=== PATIENT | male | born 1955 | race Caucasian/White ===

== ENCOUNTER → 2020-08-08 09:22 | Outpatient (CLI) | payer MEDICARE, OTHER, SELFPAY ==
[2020-08-08 10:15] LABS: Alanine Aminotransferase 26 IU/L (<50); Albumin Globulin Ratio 1.4 (1.0-2.8); Alkaline Phosphatase 100 U/L (38-126); Aspartate Aminotransferase 27 IU/L (17-59); Bilirubin Total 0.9 mg/dL (0.2-1.3); Blood Urea Nitrogen 13 mg/dL (9-20); Calcium 9.3 mg/dL (8.4-10.2); Carbon Dioxide 27 mmol/L (22-32); Chloride 107 mmol/L (98-107); Cholesterol 151 mg/dL (140-199); Estimated Glomerular Filt Rate > 60.0 mL/min (>60); Globulin 2.9 g/dL (1.7-4.1); Glucose 80 mg/dL (80-110); HDL Cholesterol 26 mg/dL (40-60); HEMOLYSIS 16 (0-50); Potassium 4.4 mmol/L (3.4-5.1); Sodium 140 mmol/L (137-145); Total Protein 6.9 g/dL (6.3-8.2); Triglycerides 434 mg/dL (35-150)
[2020-08-08 10:42] LABS: Prostate Specific Antigen Scrn 0.953 ng/mL (0.1-4.0)
[2020-08-08 16:29] LABS: Vitamin D 25 Hydroxy (D3) 21.8 ng/mL (30.0-100.0)
== END ==
PROVIDERS: Family Provider Internal Medicine; PCP Student in an Organized Health Care Education/Training Program; Referring Provider Student in an Organized Health Care Education/Training Program; Visit Provider Student in an Organized Health Care Education/Training Program
DX: Z12.5 Encounter for screening for malignant neoplasm of prostate (principal); E78.5 Hyperlipidemia, unspecified; I10 Essential (primary) hypertension; Z79.899 Other long term (current) drug therapy; E55.9 Vitamin D deficiency, unspecified
CPT/HCPCS: 36415; 80053; 80061; 82306; G0103

== ENCOUNTER → 2021-02-20 07:39 | Outpatient (CLI) | payer MEDICARE, OTHER, SELFPAY ==
[2021-02-20 08:25] LABS: Triglycerides 179 mg/dL (35-150)
[2021-02-20 08:41] LABS: Vitamin D 25 Hydroxy (D3) 47.6 ng/mL (30.0-100.0)
== END ==
PROVIDERS: Family Provider Internal Medicine; PCP Student in an Organized Health Care Education/Training Program; Referring Provider Student in an Organized Health Care Education/Training Program; Visit Provider Student in an Organized Health Care Education/Training Program
DX: E55.9 Vitamin D deficiency, unspecified (principal); E78.5 Hyperlipidemia, unspecified
CPT/HCPCS: 36415; 82306; 84478

== ENCOUNTER → 2021-02-20 08:36 | Outpatient (CLI) | payer MEDICARE, OTHER, SELFPAY ==
--- NOTE | 2021-02-20 08:38 | DI.RAD.S_ITS ---
PROCEDURE: XR ANKLE RT MIN 3V INDICATIONS: right ankle pain TECHNIQUE: 3 views of the ankle were acquired. COMPARISON: None. FINDINGS: Bones: No fractures or dislocations. Ankle mortise is normally aligned. No suspicious bony lesions. Mild anterior tibial talar joint space narrowing. Prominent plantar and posterior calcaneal enthesophytes. Soft tissues: No tibiotalar joint effusion. Achilles tendon appears normal. IMPRESSION: 1. Mild tibiotalar joint degeneration. 2. Prominent calcaneal enthesopathy. Dictated by: Herman Caldera [facility] Interpreted: Prem Mcneill MD on 02/20/2021 at 10:08 Approved by: Prem Mcneill M.D. on 02/20/2021 at 10:24
== END ==
PROVIDERS: Family Provider Internal Medicine; PCP Student in an Organized Health Care Education/Training Program; Referring Provider Registered Nurse; Visit Provider Registered Nurse
DX: M25.571 Pain in right ankle and joints of right foot (principal); M19.071 Primary osteoarthritis, right ankle and foot; M77.31 Calcaneal spur, right foot
CPT/HCPCS: 73610

== ENCOUNTER 2022-01-11 06:49 | Emergency (ER) | payer MEDICARE, OTHER, SELFPAY ==
[2022-01-11] VITALS (9 sets, daily range): BP systolic 121–146; BP diastolic 64–85; PULSE 47–56; RESP 10–17; TEMP 36.6; O2SAT 97–98; BMI 28.0
--- NOTE | 2022-01-11 07:26 | DI.RAD.S_ITS ---
PROCEDURE: XR CHEST 1V INDICATIONS: chest pain TECHNIQUE: One view of the chest was acquired. COMPARISON: None. FINDINGS: Surgical changes and devices: None. Lungs and pleura: Lungs are clear. No pleural effusions or pneumothorax. Mediastinum: Mediastinal contours appear normal. Heart size is enlarged. Bones and chest wall: No suspicious bony lesions. Overlying soft tissues appear unremarkable. IMPRESSION: No acute pulmonary process. Dictated by: Trinidad Ahn M.D. on 01/11/2022 at 8:14 Approved by: Trinidad Ahn M.D. on 01/11/2022 at 8:16
[2022-01-11] MEDS: ACETAMINOPHEN 325 MG TABLET 975 MG PO (07:45)
[2022-01-11] MEDS: ASPIRIN 81 MG CHEW TAB 324 MG PO (07:46)
--- NOTE | 2022-01-11 08:00 | ED.CHESTPAIN ---
HPI - Chest Pain General Chief Complaint: Chest Pain Stated Complaint: Can't put pressure on left leg- no injury Time Seen by Provider: 01/11/22 07:22 Source: patient Mode of arrival: Wheelchair Limitations: no limitations History of Present Illness HPI narrative: Patient is a 66-year-old male with history of hypertension hyperlipidemia presenting with variety of complaints. He states that for the last 3 days he has had some left leg pain. He said he was walking the dog when he felt something pop. He said it was fine and he was able to finish the walk however since then he has had increasing pain. He says it radiates from his hip and goes down his Anterior thigh and into his calf. he denies any back pain or buttock pain. He says it is quite painful he is unable to bear weight. He denies any fall. He said he tried to help somebody move firewood yesterday but was unable to do so. He also has had this left-sided chest discomfort for about the same 3 days. 8 his in 1 particular spot it hurts to touch hurts to move and hurts to breathe. He has been taking ibuprofen without any relief. He took some this morning and now feels a bit nauseous as he took it on an empty stomach. He has not felt nauseous before. He denies any shortness of breath. His left-sided chest pain does not radiate. Related Data Home Medications Medication Instructions Recorded Confirmed loperamide 2 mg tablet 2 mg PO QID PRN 09/05/20 05/27/21 Previous Rx's Medication Instructions Recorded lisinopril 10 mg tablet 10 mg PO DAILY #90 tab 11/22/20 omeprazole 20 mg capsule,delayed 20 mg PO DAILY #90 cap 11/22/20 release atorvastatin 10 mg tablet 10 mg PO DAILY #90 tab 12/23/20 gabapentin 300 mg capsule 300 mg PO BEDTIME #30 cap 01/11/22 hydrocodone 5 mg-acetaminophen 325 1 tab PO Q6H PRN #10 tab 01/11/22 mg tablet Allergies Allergy/AdvReac Type Severity Reaction Status Date / Time Penicillins [PENICILLINS] Allergy Unknown Unknown Verified 05/27/21 12:58 erythromycin base Allergy Verified 05/27/21 12:58 Review of Systems Review of Systems Narrative: GENERAL: Denies chills, fatigue, malaise, fever, sweats, travel HEENT: Denies sinus pain, ear pain, sore throat, difficulty swallowing, neck pain RESPIRATORY: Denies dyspnea, cough, wheezing, hemoptysis, sputum. CARDIOVASCULAR: See HPI GASTROINTESTINAL: Denies nausea, vomiting, abdominal pain, diarrhea, constipation, melena. : Denies dysuria, frequency, incontinence, hematuria, urinary retention, flank pain. MUSCULOSKELETAL: See HPI SKIN: No rash, no erythema, no pruritus NEUROLOGIC: Denies weakness, dizziness, headache, numbness, change in speech, confusion PSYCHIATRIC: No concerning psychosocial issues. 12 point review of systems is negative except for those stated above and HPI Patient History Medical History Chicken pox Chronic back pain Chronic knee pain Closed head injury Fractures Hearing loss HTN (hypertension) Hyperlipidemia Shoulder pain Tinnitus Surgical History Anesthesia History of mandibular surgery (~1974) Hx of cholecystectomy Family History Father History of heart disease Brother Cancer Social History Smoking Status: Never smoker Smoking Status: Never smoker alcohol intake frequency: 0-2 drinks per day Substance Use Type: does not use Exam Initial Vital Signs Initial Vital Signs: Vital Signs Temperature 97.8 F 01/11/22 07:19 Pulse Rate 56 L 01/11/22 07:19 Respiratory Rate 15 01/11/22 07:19 Blood Pressure 146/85 H 01/11/22 07:19 Pulse Oximetry 98 01/11/22 07:19 GENERAL: Alert 66-year-old male no acute distress HEENT: Head atraumatic,EOMI, pupils reactive, face symmetric, moist mucous membranes CARDIOVASCULAR: Regular rate and rhythm without murmurs, rubs or gallops. The pain is reproducible in his left upper chest. With tender to touch worse with deep breaths and movement RESPIRATORY: Breath sounds equal bilaterally, no wheezes rales or rhonchi. ABDOMEN: Soft, nontender. Normoactive bowel sounds all 4 quadrants. No guarding or rebound. BACK: No vertebral tenderness no step-off EXTREMITIES: Normal range of motion, no clubbing or edema. Neurovascularly intact Left lower extremity no significant swelling or erythema no gross bony deformities slight pain with hip internal and external rotation along with flexion NEUROLOGICAL: Alert and oriented x4.Normal gait and speech. Able to hold both lower extremities off the gurney. Left leg does hurt to move. Definitely hurts with heel to jovel his right side is unremarkable. SKIN: Warm, dry, no laceration, no petechiae, no rashes or lesions. Scores NIH Stroke Scale Level of Conciousness: Alert, keenly responsive Ask month/age: Answers both questions correctly. Open/close eyes, close hand: Performs both tasks correctly Best gaze horizontal: Normal Visual montaño: No visual loss Facial palsy: Normal symetrical movement Left arm drift: No drift for full 10 sec Right arm drift: No drift for full 10 sec Left leg drift: No drift for full 5 sec Right leg drift: No drift for full 5 sec Limb ataxia: Absent Sensory on face/arms/legs: Normal, no sensory loss Best language: No aphasia, normal Dysarthria: Normal Extinction or inattention: No abnormality Total NIH Stroke scale score: 0 Course Orders Ordered: Discontinued Medications Acetaminophen (Acetaminophen 325 Mg Tablet) 975 mg PO NOW ONE Stop: 01/11/22 07:36 Last Admin: 01/11/22 07:45 Dose: 975 mg Documented by: PROMISE Aspirin (Aspirin 81 Mg Chew Tab) 324 mg PO NOW ONE Stop: 01/11/22 07:26 Last Admin: 01/11/22 07:46 Dose: 324 mg Documented by: PROMISE Vital Signs Vital signs: Vital Signs - 8 hr 01/11/22 07:19 Temperature 97.8 F Pulse Rate 56 L Respiratory Rate 15 Blood Pressure 146/85 H Pulse Oximetry 98 MDM - Chest Pain Lab Data Result diagrams: 01/11/22 07:50 01/11/22 07:50 Labs: Lab Results 01/11/22 01/11/22 01/11/22 Range/Units 07:50 07:50 07:50 WBC 7.2 (4.5-11.0) X10^3/uL RBC 4.80 (4.5-5.9) X10^6/uL Hgb 15.0 (13.5-17.5) g/dL Hct 42.9 (41-53) % MCV 89.3 (80-100) fL MCH 31.2 (26-34) PG MCHC 35.0 (30-36) % RDW 13.2 (11.6-14.8) % Plt Count 135 L (150-400) X10^3/uL Neut % (Auto) 51.3 (50-75) % Lymph % (Auto) 34.8 (25-40) % Snyder % (Auto) 10.8 (3-14) % Eos % (Auto) 2.6 (2-4) % Baso % (Auto) 0.5 (0-2) % Neut # (Auto) 3700 (3470-4003) /uL Lymph # (Auto) 2500 (6104-4316) /uL Snyder # (Auto) 800 (0-900) /uL Eos # (Auto) 200 (0-450) /uL Baso # (Auto) 0 (0-100) /uL PT 11.9 (10.1-12.7) SECONDS INR 1.1 (0.9-1.3) APTT 30 (26.4-36.2) SECONDS D-Dimer 261 H (<230) ng/mL Sodium 141 (137-145) mmol/L Potassium 3.9 (3.4-5.1) mmol/L Chloride 109 H (98-107) mmol/L Carbon Dioxide 23 (22-32) mmol/L BUN 25 H (9-20) mg/dL Creatinine 1.26 H (0.66-1.25) mg/dL Estimated GFR 57.3 L (>60) mL/min BUN/Creatinine Ratio 19.8 (6-22) Glucose 107 (80-110) mg/dL Calcium 9.1 (8.4-10.2) mg/dL Total Bilirubin 0.9 (0.2-1.3) mg/dL AST 28 (17-59) IU/L ALT 23 (<50) IU/L Alkaline Phosphatase 84 (38-126) U/L Total Creatine Kinase 165 (55-170) U/L CK-MB (CK-2) 1.17 (<2.37) ng/mL CK-MB (CK-2) Rel Index 0.7 L (1.5-5.0) % Troponin I < 0.012 (0.01-0.034) ng/mL Total Protein 7.2 (6.3-8.2) g/dL Albumin 4.1 (3.5-5.0) g/dL Globulin 3.1 (1.7-4.1) g/dL Albumin/Globulin Ratio 1.3 (1.0-2.8) Lipase 87 (23-300) U/L Imaging Data Chest x-ray: Radiologist's Impression: PROCEDURE:? XR CHEST 1V ? INDICATIONS:? chest pain ? TECHNIQUE:? One view of the chest was acquired.? ? COMPARISON:? None. ? FINDINGS:? ? Surgical changes and devices:? None.? ? Lungs and pleura:? Lungs are clear.? No pleural effusions or pneumothorax.? ? Mediastinum:? Mediastinal contours appear normal.? Heart size is enlarged. ? Bones and chest wall:? No suspicious bony lesions.? Overlying soft tissues appear unremarkable.? ? IMPRESSION:? No acute pulmonary process. ? ? Dictated by: Trinidad Ahn M.D. on 01/11/2022 at 8:14 ?? ECG Data Interpretation: Normal sinus rhythm rate 54 DC interval 200 QRS 80 QTC 370 With T-wave inversion noted in lead [address] depression v4-v5 Normal sinus rhythm rate 52 DC interval 188 QRS [address] changes no T-wave inversions improved from previous MDM Narrative Medical decision making narrative: The patient had an event where he felt his leg a pop. Since then he has had some numbness and tingling. This seems to be musculoskeletal. He denies any back pain. He has no signs of stroke. He does have reproducible chest discomfort is which is pinpoint it has not moved or changed over the last 3 days. He has a negative cardiac workup. He does have some mild risk factors. I discussed with him that he probably does need further workup with his PCP. He is given Tylenol here he is offered more for pain but wants to be able to drive home. Discharge Plan Departure Patient Disposition: Home Clinical Impression: Left sciatic nerve pain, Atypical chest pain Instructions: DI for Sciatica, DI for Atypical Chest Pain Activity Restrictions/Additional Instructions: *You have been diagnosed with atypical chest pain and nerve pain *What to do: At this time he may need further heart workup such as a stress test but this time it seems to be musculoskeletal. Her leg seems to be from nerve his pain *Continue to take medications as directed [place] 1 tablet every 6 hours if needed for severe pain Gabapentin 300 mg at night for sleeping nerve pain (please talk to your doctor if this needs to be titrated up) *Follow up with your primary care provider in 2-3 days or call [phone] *Return to ER if you should have leg weakness loss of urine or stool, intense pain, chest pain or any new, worsening or concerning symptoms CONTROLLED SUBSTANCE DISCHARGE (Narcotoic/benzodiazepine/Flexeril/Phenergan) 1. You have been prescribed narcotic medications, it does have acetaminophen/Tylenol/paracetamol in it, DO NOT TAKE MORE THAN 4,00mg in 24 hours of Tylenol. TRAMADOL DOES NOT CONTAIN TYLENOL 2. Please understand that we cannot provide further refills of narcotics, benzodiazepines or controlled substances through the ED and her pain management will need to be through your provider. 3. While on these medications you cannot drive or operate heavy machinery. 4. You cannot sign legal documents or perform any duties such as this. 5. As long as you're taking opiate pain medications he should also be taking a stool softener such as Colace, Dulcolax, MiraLAX or prune juice, to help avoid constipation. Prescriptions: New gabapentin 300 mg capsule 300 mg PO BEDTIME Qty: 30 0RF hydrocodone-acetaminophen 5-325 mg tablet 1 tab PO Q6H PRN (Reason: pain) Qty: 10 0RF No Action lisinopril 10 mg tablet 10 mg PO DAILY Qty: 90 3RF omeprazole 20 mg capsule,delayed release(DR/EC) 20 mg PO DAILY Qty: 90 3RF atorvastatin 10 mg tablet 10 mg PO DAILY Qty: 90 2RF loperamide 2 mg tablet 2 mg PO QID PRN0RF Referrals: Israel Wasserman MD [Primary Care Provider] - Stand Alone Forms: Work Release Note
[2022-01-11 08:08] LABS: Add Manual Diff / Slide Review NO; Basophils Absolute Auto 0 /uL (0-100); Basophils Percent Auto 0.5 % (0-2); Eosinophils Absolute Auto 200 /uL (0-450); Eosinophils Percent Auto 2.6 % (2-4); Hematocrit 42.9 % (41-53); Lymphocytes Absolute Auto 2500 /uL (1100-4500); Lymphocytes Percent Auto 34.8 % (25-40); Mean Corpuscular Hemoglobin 31.2 PG (26-34); Mean Corpuscular Volume 89.3 fL (80-100); Monocytes Absolute Auto 800 /uL (0-900); Monocytes Percent Auto 10.8 % (3-14); Neutrophils Absolute Auto 3700 /uL (1500-7000); Neutrophils Percent Auto 51.3 % (50-75); Platelet Count 135 X10^3/uL (150-400); Red Cell Distribution Width 13.2 % (11.6-14.8); White Blood Cell Count 7.2 X10^3/uL (4.5-11.0)
[2022-01-11 08:16] LABS: INR 1.1 (0.9-1.3); Prothrombin Time 11.9 SECONDS (10.1-12.7)
[2022-01-11 08:19] LABS: D Dimer 261 ng/mL (<230); PTT Partial Thromboplastin Tim 30 SECONDS (26.4-36.2)
[2022-01-11 08:21] LABS: Alanine Aminotransferase 23 IU/L (<50); Albumin 4.1 g/dL (3.5-5.0); Albumin Globulin Ratio 1.3 (1.0-2.8); Alkaline Phosphatase 84 U/L (38-126); Aspartate Aminotransferase 28 IU/L (17-59); BUN Creatinine Ratio 19.8 (6-22); Bilirubin Total 0.9 mg/dL (0.2-1.3); Blood Urea Nitrogen 25 mg/dL (9-20); Calcium 9.1 mg/dL (8.4-10.2); Carbon Dioxide 23 mmol/L (22-32); Chloride 109 mmol/L (98-107); Creatine Kinase 165 U/L (55-170); Estimated Glomerular Filt Rate 57.3 mL/min (>60); Globulin 3.1 g/dL (1.7-4.1); Glucose 107 mg/dL (80-110); HEMOLYSIS < 15 (0-50); Lipase 87 U/L (23-300); Potassium 3.9 mmol/L (3.4-5.1); Sodium 141 mmol/L (137-145); Total Protein 7.2 g/dL (6.3-8.2)
[2022-01-11 08:32] LABS: Troponin I < 0.012 ng/mL (0.01-0.034)
[2022-01-11 08:36] LABS: CKMB % Relative Index 0.7 % (1.5-5.0); Creatine Kinase MB 1.17 ng/mL (<2.37)
== END 2022-01-11 09:17 | disposition home or self-care (01) ==
PROVIDERS: Emergency Provider Emergency Medicine; Family Provider Internal Medicine; PCP Student in an Organized Health Care Education/Training Program
DX: M54.32 Sciatica, left side (principal); R07.89 Other chest pain
CPT/HCPCS: 36415; 71045; 80053; 82550; 82553; 83690; 84484; 85025; 85379; 85610; 85730; 93005; 93010; 93041; 99284

== ENCOUNTER → 2022-01-13 06:24 | Outpatient (CLI) | payer MEDICARE, OTHER, SELFPAY ==
--- NOTE | 2022-01-13 06:28 | DI.MRI.S_ITS ---
PROCEDURE: MR KNEE LT WO CON INDICATIONS: Knee pain TECHNIQUE: Noncontrast sagittal PD fast spin echo and T2 fast spin echo with fat saturation, sagittal 3-D FLASH with fat saturation; coronal T1 spin echo and PD fast spin echo with fat saturation, and axial PD fast spin echo with fat saturation through the knee. COMPARISON: None. FINDINGS: Image quality: Excellent. Menisci: The lateral meniscus appears intact. Defect in the medial meniscus, measuring 6.5 mm, also exhibiting extrusion. Cruciate ligaments: The anterior and posterior cruciate ligaments appear intact. Medial structures: Grade 1/2 MCL injury. Visualized portions of the pes anserinus tendons appear normal. No abnormal bursal fluid. Lateral structures: The lateral collateral ligament, long and short heads of the biceps femoris tendon appear intact. The popliteus tendon appears normal. Iliotibial band appears normal. Anterior structures: The quadriceps and patellar tendons appear intact. Patellar alignment is normal. No femoral trochlear dysplasia or ventral trochlear prominence. No edema in the infrapatellar fat pad. Bones and cartilage: No evidence of fracture. A small focus of subchondral in the medial femoral condyle. Signal heterogeneity and thinning as well as contour irregularity of the medial femoral condyle hyaline cartilage. The lateral and patellofemoral compartments are maintained. Joint space: Small to moderate knee joint fluid. T2 hyperintense lesion in the popliteal fossa, measuring 3.4 x 0.7 cm, compatible with a Pendleton cyst. IMPRESSION: 1. Grade 1/2 MCL injury with medial meniscal tear. 2. Small to moderate joint effusion. 3. Degenerative change of the medial compartment hyaline cartilage. 4. Small Pendleton's cyst. Dictated by: Luke Sanderson M.D. on 01/13/2022 at 10:31 Approved by: Luke Sanderson M.D. on 01/13/2022 at 10:40
== END ==
PROVIDERS: Family Provider Internal Medicine; PCP Student in an Organized Health Care Education/Training Program; Referring Provider Student in an Organized Health Care Education/Training Program; Visit Provider Student in an Organized Health Care Education/Training Program
DX: M25.562 Pain in left knee (principal); S83.242A Other tear of medial meniscus, current injury, left knee, initial encounter; M25.462 Effusion, left knee; M71.22 Synovial cyst of popliteal space [Baker], left knee
CPT/HCPCS: 73721

== ENCOUNTER → 2022-08-09 08:01 | Outpatient (CLI) | payer MEDICARE, OTHER, SELFPAY ==
[2022-08-09 09:35] LABS: Add Manual Diff / Slide Review NO; Basophils Absolute Auto 0 /uL (0-100); Basophils Percent Auto 0.4 % (0-2); Eosinophils Absolute Auto 300 /uL (0-450); Eosinophils Percent Auto 4.3 % (2-4); Hematocrit 40.5 % (41-53); Hemoglobin 14.4 g/dL (13.5-17.5); Lymphocytes Absolute Auto 2200 /uL (1100-4500); Lymphocytes Percent Auto 34.9 % (25-40); Mean Corpuscular HGB Conc 35.5 % (30-36); Mean Corpuscular Hemoglobin 31.2 PG (26-34); Mean Corpuscular Volume 88.1 fL (80-100); Monocytes Absolute Auto 900 /uL (0-900); Monocytes Percent Auto 13.9 % (3-14); Neutrophils Absolute Auto 2900 /uL (1500-7000); Neutrophils Percent Auto 46.5 % (50-75); Platelet Count 137 X10^3/uL (150-400); Red Cell Distribution Width 13.6 % (11.6-14.8); White Blood Cell Count 6.2 X10^3/uL (4.5-11.0)
[2022-08-09 10:19] LABS: Hemoglobin A1C% w Est Avg Glu 5.9 % (4.0-6.0)
[2022-08-09 11:10] LABS: BUN Creatinine Ratio 14.5 (6-22); Blood Urea Nitrogen 18 mg/dL (9-20); Calcium 8.7 mg/dL (8.4-10.2); Carbon Dioxide 28 mmol/L (22-32); Chloride 100 mmol/L (98-107); Estimated Glomerular Filt Rate > 60 mL/min (>60); Glucose 98 mg/dL (80-110); HEMOLYSIS < 15 (0-50); Potassium 4.2 mmol/L (3.4-5.1); Sodium 138 mmol/L (137-145)
[2022-08-09 12:15] LABS: Appearance Urine UA CLEAR; Bilirubin Urine UA NEGATIVE (NEGATIVE); Color Urine UA YELLOW; Glucose Urine UA NEGATIVE (Negative); Ketones Urine UA NEGATIVE (NEGATIVE); Leukocyte Esterase Urine UA NEGATIVE (NEGATIVE); Nitrite Urine UA NEGATIVE (Negative); Occult Blood Urine UA NEGATIVE (Negative); Protein Urine UA TRACE (Negative); Urobilinogen Urine UA 0.2 E.U./dL (0.2); pH Urine UA 5.5 (4.5-8.0)
[2022-08-09 12:32] LABS: Bacteria Urine Few (2-10); Culture Indicated Urine Cult Not Indicated; Mucus Urine 1+ (Negative); RBC Urine None Seen (0-5/HPF); Squamous Epithelial Cell Urine 0-1 /HPF (0-5/HPF); WBC Urine 0-1/HPF (0-5/HPF)
== END ==
PROVIDERS: Family Provider Internal Medicine; PCP Student in an Organized Health Care Education/Training Program; Referring Provider Orthopaedic Surgery; Visit Provider Orthopaedic Surgery
DX: Z01.812 Encounter for preprocedural laboratory examination (principal); R73.9 Hyperglycemia, unspecified; N39.0 Urinary tract infection, site not specified; Z01.818 Encounter for other preprocedural examination
CPT/HCPCS: 36415; 80048; 81001; 83036; 85025; 93005; 93010

== ENCOUNTER → 2022-08-25 08:29 | Outpatient (CLI) | payer MEDICARE, OTHER, SELFPAY | PROVIDERS: Family Provider Internal Medicine; PCP Student in an Organized Health Care Education/Training Program; Referring Provider Student in an Organized Health Care Education/Training Program; Visit Provider Student in an Organized Health Care Education/Training Program | DX: M54.9 Dorsalgia, unspecified (principal); M54.50 Low back pain, unspecified; G89.29 Other chronic pain; Z53.20 Procedure and treatment not carried out because of patient's decision for unspecified reasons ==

== ENCOUNTER → 2022-09-09 07:54 | Outpatient (CLI) | payer MEDICARE, OTHER, SELFPAY ==
[2022-09-09 11:28] LABS: Prostate Specific Antigen Scrn 1.12 ng/mL (0.1-4.0)
== END ==
PROVIDERS: Family Provider Internal Medicine; PCP Student in an Organized Health Care Education/Training Program; Referring Provider Student in an Organized Health Care Education/Training Program; Visit Provider Student in an Organized Health Care Education/Training Program
DX: Z12.5 Encounter for screening for malignant neoplasm of prostate (principal)
CPT/HCPCS: 36415; G0103

== ENCOUNTER → 2022-10-10 13:01 | Outpatient (CLI) | payer MEDICARE, OTHER, SELFPAY | PROVIDERS: Family Provider Internal Medicine; PCP Student in an Organized Health Care Education/Training Program; Visit Provider Student in an Organized Health Care Education/Training Program | DX: K12.0 Recurrent oral aphthae (principal) | CPT/HCPCS: 87252 ==

== ENCOUNTER → 2023-04-26 07:59 | Outpatient (CLI) | payer MEDICARE, OTHER, SELFPAY ==
[2023-04-26 08:54] LABS: Appearance Urine UA CLEAR; Bilirubin Urine UA NEGATIVE (NEGATIVE); Color Urine UA YELLOW; Glucose Urine UA NEGATIVE (Negative); Ketones Urine UA NEGATIVE (NEGATIVE); Leukocyte Esterase Urine UA NEGATIVE (NEGATIVE); Nitrite Urine UA NEGATIVE (Negative); Occult Blood Urine UA NEGATIVE (Negative); Protein Urine UA TRACE (Negative); Specific Gravity Urine UA >=1.030 (1.000-1.035); pH Urine UA 5.5 (4.5-8.0)
[2023-04-26 09:12] LABS: Bacteria Urine Few (2-10); RBC Urine 0-1/HPF (0-5/HPF); WBC Urine 0-1/HPF (0-5/HPF)
[2023-04-26 09:13] LABS: Culture Indicated Urine Cult Not Indicated; Squamous Epithelial Cell Urine None Seen (0-5/HPF)
[2023-04-26 10:09] LABS: Alanine Aminotransferase 25 IU/L (<50); Albumin 4.4 g/dL (3.5-5.0); Albumin Globulin Ratio 1.7 (1.0-2.8); Alkaline Phosphatase 102 U/L (38-126); Aspartate Aminotransferase 26 IU/L (17-59); BUN Creatinine Ratio 19.7 (6-22); Bilirubin Total 1.1 mg/dL (0.2-1.3); Blood Urea Nitrogen 25 mg/dL (9-20); Calcium 9.4 mg/dL (8.4-10.2); Carbon Dioxide 29 mmol/L (22-32); Chloride 102 mmol/L (98-107); Cholesterol 110 mg/dL (140-199); Estimated Glomerular Filt Rate > 60 mL/min (>60); Globulin 2.6 g/dL (1.7-4.1); Glucose 105 mg/dL (80-110); HDL Cholesterol 33 mg/dL (40-60); LDL Cholesterol Calculated 43 mg/dL (<100); Potassium 4.4 mmol/L (3.4-5.1); Sodium 140 mmol/L (137-145); Triglycerides 168 mg/dL (35-150)
[2023-04-26 10:10] LABS: HEMOLYSIS < 15 (0-50)
[2023-04-26 10:14] LABS: High Sensitivity CRP - Cardiac < 0.3 mg/L (1.0-3.0)
[2023-04-26 10:20] LABS: Add Manual Diff / Slide Review NO; Basophils Absolute Auto 0 /uL (0-100); Basophils Percent Auto 0.5 % (0-2); Eosinophils Absolute Auto 200 /uL (0-450); Eosinophils Percent Auto 2.1 % (2-4); Hematocrit 44.2 % (41-53); Hemoglobin 15.6 g/dL (13.5-17.5); Lymphocytes Absolute Auto 2500 /uL (1100-4500); Lymphocytes Percent Auto 32.7 % (25-40); Mean Corpuscular HGB Conc 35.3 % (30-36); Mean Corpuscular Hemoglobin 31.6 PG (26-34); Mean Corpuscular Volume 89.5 fL (80-100); Monocytes Absolute Auto 600 /uL (0-900); Monocytes Percent Auto 7.2 % (3-14); Neutrophils Absolute Auto 4400 /uL (1500-7000); Neutrophils Percent Auto 57.5 % (50-75); Platelet Count 160 X10^3/uL (150-400); Red Blood Cell Count 4.94 X10^6/uL (4.5-5.9); Red Cell Distribution Width 13.4 % (11.6-14.8); White Blood Cell Count 7.7 X10^3/uL (4.5-11.0)
[2023-04-26 10:39] LABS: TSH w/ Reflex to FT4 1.96 uIU/mL (0.47-4.68)
[2023-04-26 10:40] LABS: Prostate Specific Antigen Scrn 1.26 ng/mL (0.1-4.0)
== END ==
PROVIDERS: Family Provider Internal Medicine; PCP Pediatrics; Referring Provider Pediatrics; Visit Provider Pediatrics
DX: Z00.00 Encounter for general adult medical examination without abnormal findings; E78.5 Hyperlipidemia, unspecified; Z12.5 Encounter for screening for malignant neoplasm of prostate; E55.9 Vitamin D deficiency, unspecified; G89.29 Other chronic pain; I10 Essential (primary) hypertension; M54.9 Dorsalgia, unspecified
CPT/HCPCS: 80053; 80061; 81001; 83036; 84443; 85025; 86140; G0103

== ENCOUNTER → 2023-07-16 07:32 | Outpatient (CLI) | payer MEDICARE, OTHER, SELFPAY ==
--- NOTE | 2023-07-16 07:34 | DI.RAD.S_ITS ---
PROCEDURE: XR CHEST 2V INDICATIONS: Cough TECHNIQUE: 2 views of the chest were acquired. COMPARISON: [facility], CT, KIDNEY/ URETER/BLADDER, 06/08/2015, 17:50. [facility], CR, ABDOMEN ACUTE SERIES, 06/08/2015, 15:56. [facility], CR, XR CHEST 1V, 01/11/2022, 7:27. FINDINGS: Surgical changes and devices: Cholecystectomy clips are seen. Lungs and pleura: Lungs are clear. No pleural effusions or pneumothorax. Mediastinum: Mediastinal contours are normal. Heart size is normal. Bones and chest wall: No suspicious bony abnormalities. Age-appropriate bony degenerative changes are seen. Soft tissues appear unremarkable. IMPRESSION: No focal infiltrates are seen. Dictated by: Neto Vidales M.D. on 07/16/2023 at 9:21 Approved by: Neto Vidales M.D. on 07/16/2023 at 9:23
== END ==
PROVIDERS: Family Provider Internal Medicine; PCP Pediatrics; Referring Provider Nurse Practitioner Family; Visit Provider Nurse Practitioner Family
DX: R05.9 Cough, unspecified (principal)
CPT/HCPCS: 71046

== ENCOUNTER → 2023-07-23 07:51 | Outpatient (CLI) | payer MEDICARE, OTHER, SELFPAY ==
[2023-07-23 09:50] LABS: Appearance Urine UA CLEAR; Bacteria Urine Occasional (0-1); Bilirubin Urine UA NEGATIVE (NEGATIVE); Color Urine UA YELLOW; Culture Indicated Urine Cult Not Indicated; Glucose Urine UA NEGATIVE (Negative); Ketones Urine UA NEGATIVE (NEGATIVE); Leukocyte Esterase Urine UA NEGATIVE (NEGATIVE); Mucus Urine 1+ (Negative); Nitrite Urine UA NEGATIVE (Negative); Occult Blood Urine UA NEGATIVE (Negative); Protein Urine UA TRACE (Negative); RBC Urine 0-1/HPF (0-5/HPF); Specific Gravity Urine UA >=1.030 (1.000-1.035); Squamous Epithelial Cell Urine None Seen (0-5/HPF); Urobilinogen Urine UA 0.2 E.U./dL (0.2); WBC Urine 0-1/HPF (0-5/HPF); pH Urine UA 5.5 (4.5-8.0)
[2023-07-25 16:35] LABS: Fecal Immunochemical Test Negative (Negative)
== END ==
PROVIDERS: Physician Assistant; Family Provider Internal Medicine; PCP Pediatrics; Referring Provider Family Medicine; Visit Provider Family Medicine
DX: Z86.010 Personal history of colon polyps (principal); Z12.11 Encounter for screening for malignant neoplasm of colon; I10 Essential (primary) hypertension
CPT/HCPCS: 81001; 82274

== ENCOUNTER 2024-01-31 09:33 | Day surgery (SDC) | payer MEDICARE, OTHER, SELFPAY ==
--- NOTE | 2024-01-31 | PATH_ITS ---
[facility] Accession Number: [id number] No. of containers..01 Tissue . 01 Material submitted: . rectum - RECTAL POLYPS . 01 Diagnosis: RECTUM, POLYPS: Hyperplastic polyps. MRV 02/06/2024 1220 Local . 01 Electronically signed: . Nara Reed MD, Pathologist NPI- [id number] . 01 Gross description: . RECTAL POLYPS: Received in formalin are 2 fragment(s) of myers, soft tissue measuring 0.5 x 0.2 x 0.2 cm to 0.9 x 0.2 x 0.2 cm submitted entirely in 1 cassette(s) /MIKAELA 02/02/2024 1907 Local . 01 Pathologist provided ICD-10: K62.1 . 01 CPT . 041173 Specimen Comment: A courtesy copy of this report has been sent to [phone] Performed at: 01 [facility] [address] [place] [address], [place], [place] [id number] MD Kareme Rincon MD Phone: [phone]
[2024-01-31 10:12] VITALS: BP 149/93; PULSE 95; RESP 17; TEMP 36.7; O2SAT 96
--- NOTE | 2024-01-31 10:13 | PM.PREOP ---
Pre-operative Note COVID-19 COVID-19 status: Not tested Interval Note History & Physical reviewed/Exam performed by Physician: Yes Changes to H&P: No ASA Class (for procedural sedation): II
[2024-01-31] MEDS: LACTATED RINGERS 1,000 ML 100 ML IV (10:24)
--- NOTE | 2024-01-31 11:15 | PM.OP.COLON ---
Operative Date/Time/Diagnoses Date of procedure: 01/31/24 Time of procedure: 11:15 Pre-op diagnosis: Positive fit test Post-op diagnosis: same Procedure & Clinicians Study performed: Colonoscopy Same procedure as scheduled: Yes Surgeon: Ino Gottlieb Procedure Notes Procedure in detail: Surgeon: Ino Gottlieb MD Anesthesia: Nara Maldonado CRNA Procedure: The patient was brought to the endoscopy suite, placed in left lateral decubitus position. The patient was connected to monitoring devices. A time-out was performed. Sedation was administered. Once the patient was adequately sedated, a digital rectal exam was performed and was normal. The scope was then inserted and advanced to the cecum where the appendiceal orifice was identified and photographed. The scope was then slowly withdrawn over greater than 6 minutes. The mucosa was thoroughly inspected. There were 2 small polyps in the rectum removed with a cold snare and sent together. The scope was retroflexed in the rectum. Some mild internal hemorrhoids were noted. The scope was straightened and removed. The patient was awakened and brought to recovery. Scope withdrawal time: 12 minutes Sedation time: 20 minutes EBL: 5 mL Findings: 2 small rectal polyps and internal hemorrhoids Post-procedure Disposition: PACU
[2024-01-31 11:17] VITALS: BP 132/85; PULSE 72; RESP 18; TEMP 36.4; O2SAT 95
[2024-01-31 11:22] VITALS: BP 135/90; PULSE 75; RESP 15; O2SAT 95
[2024-01-31 11:27] VITALS: BP 134/86; PULSE 64; RESP 14; O2SAT 96
[2024-01-31 11:32] VITALS: BP 135/88; PULSE 66; RESP 14; O2SAT 98
[2024-01-31 11:55] VITALS: BP 144/86; PULSE 65; RESP 14; O2SAT 98
== END 2024-01-31 12:00 | disposition home or self-care (01) ==
PROVIDERS: Family Provider Internal Medicine; PCP Family Medicine; Referring Provider Surgery; Visit Provider Surgery
PROC: 0DJD8ZZ Inspection of Lower Intestinal Tract, Via Natural or Artificial Opening Endoscopic (ICD-10-PCS; CPT 45378; principal; 2024-01-31 10:30)
DX: K62.5 Hemorrhage of anus and rectum (principal); K64.8 Other hemorrhoids; K62.1 Rectal polyp
CPT/HCPCS: 45385; J2704

== ENCOUNTER → 2024-08-19 10:27 | Outpatient (CLI) | payer MEDICARE, OTHER, SELFPAY ==
--- NOTE | 2024-08-19 10:28 | DI.MRI.S_ITS ---
PROCEDURE: MR SHOULDER RT WO CON INDICATIONS: EVAL RT ROTATOR CUFF TECHNIQUE: Noncontrast oblique coronal T2 fast spin echo with fat saturation, oblique sagittal T1 spin echo and T2 fast spin echo with fat saturation, axial T1 spin echo and T2 fast spin echo with fat saturation through the shoulder. COMPARISON: [facility] [place], CR, XR SHOULDER 2+ VIEWS RIGHT, 08/15/2024, 10:40. FINDINGS: Image quality: Excellent. Rotator cuff: In the supraspinatus, there is full-thickness, full width tear at the footprint, with tendon retraction to the level of the glenohumeral articulation. Moderate tendinosis of the infraspinatus, without tear. The teres minor is unremarkable. The subscapularis is intact. No muscle edema. Moderate atrophy of the supraspinatus. Bones and bursae: Moderate degenerative change of the acromioclavicular joint. Type 1 acromion. No os acromiale. Moderate subacromial/subdeltoid bursitis. Moderate subchondral cystic changes at the posterior aspect of the humeral head, reactive. No acute fracture. No focal chondral defect of the glenohumeral articulation. Capsule and soft tissues: Tear of the anterior superior labrum, extending anteriorly to the anterior inferior labrum. Mild tenosynovitis of the extra-articular biceps tendon. Moderate tendinosis of the intra-articular biceps tendon. Small glenohumeral effusion. Mild subcoracoid bursitis. IMPRESSION: 1. Moderate degenerative changes of the acromioclavicular joint. 2. Full-thickness, full width tear of the supraspinatus with tendon retraction and moderate atrophy. 3. Moderate tendinosis of the infraspinatus, without tear. 4. Labral tear. 5. Moderate tendinosis of the intra-articular biceps tendon. Dictated by: Tran Hayward M.D. on 08/20/2024 at 14:29 Approved by: Tran Hayward M.D. on 08/20/2024 at 14:37
== END ==
PROVIDERS: Family Provider Internal Medicine; PCP Family Medicine; Referring Provider Orthopaedic Surgery; Visit Provider Orthopaedic Surgery
DX: M75.121 Complete rotator cuff tear or rupture of right shoulder, not specified as traumatic (principal); M25.511 Pain in right shoulder
CPT/HCPCS: 73221

== ENCOUNTER → 2024-09-26 09:07 | Outpatient (CLI) | payer MEDICARE, OTHER, SELFPAY ==
[2024-09-26 10:05] LABS: Hemoglobin A1C% w Est Avg Glu 5.8 % (4.0-6.0)
[2024-09-26 10:25] LABS: Cholesterol 96 mg/dL (140-199); HDL Cholesterol 29 mg/dL (40-60); LDL Cholesterol Calculated 26 mg/dL (<100); Triglycerides 204 mg/dL (35-150)
== END ==
PROVIDERS: Family Provider Internal Medicine; PCP Family Medicine; Referring Provider Family Medicine; Visit Provider Family Medicine
DX: E11.9 Type 2 diabetes mellitus without complications (principal)
CPT/HCPCS: 36415; 80061; 83036

== ENCOUNTER → 2024-11-24 08:14 | Outpatient (CLI) | payer MEDICARE, OTHER, SELFPAY ==
[2024-11-24 09:56] LABS: Prostate Specific Antigen 1.63 ng/mL (0.10-4.00)
== END ==
PROVIDERS: Family Provider Internal Medicine; PCP Family Medicine; Referring Provider Family Medicine; Visit Provider Family Medicine
DX: Z12.5 Encounter for screening for malignant neoplasm of prostate (principal)
CPT/HCPCS: 36415; 84153; G0103

== ENCOUNTER → 2025-07-12 06:07 | Outpatient (CLI) | payer OTHER, SELFPAY ==
[2025-07-12 07:14] LABS: Appearance Urine UA CLEAR; Bilirubin Urine UA NEGATIVE (NEGATIVE); Color Urine UA YELLOW; Glucose Urine UA NEGATIVE (Negative); Ketones Urine UA NEGATIVE (NEGATIVE); Leukocyte Esterase Urine UA NEGATIVE (NEGATIVE); Nitrite Urine UA NEGATIVE (Negative); Occult Blood Urine UA NEGATIVE (Negative); Protein Urine UA NEGATIVE (Negative); Specific Gravity Urine UA 1.010 (1.000-1.035); Urobilinogen Urine UA 0.2 E.U./dL (0.2); pH Urine UA 6.5 (4.5-8.0)
[2025-07-12 07:29] LABS: Culture Indicated Urine Cult Not Indicated
[2025-07-12 08:11] LABS: Alanine Aminotransferase 24 IU/L (<50); Albumin 4.3 g/dL (3.5-5.0); Albumin Globulin Ratio 1.7 (1.0-2.8); Alkaline Phosphatase 107 U/L (38-126); Blood Urea Nitrogen 19 mg/dL (9-20); Calcium 9.4 mg/dL (8.4-10.2); Carbon Dioxide 26 mmol/L (22-32); Chloride 103 mmol/L (98-107); Estimated Glomerular Filt Rate > 60 mL/min (>60); Globulin 2.6 g/dL (1.7-4.1); Glucose 132 mg/dL (70-99); HEMOLYSIS 50 (0-50); Potassium 4.4 mmol/L (3.4-5.1); Sodium 137 mmol/L (137-145); Total Protein 6.9 g/dL (6.3-8.2)
== END ==
PROVIDERS: Family Provider Internal Medicine; PCP Family Medicine; Referring Provider Chiropractor; Visit Provider Chiropractor
DX: E11.9 Type 2 diabetes mellitus without complications (principal)
CPT/HCPCS: 36415; 80053; 81001